=== PATIENT | male | born 1950 ===

== ENCOUNTER 2021-08-15 06:17 | Day surgery (SDC) | payer MEDICARE ==
[~2021-08-15] VITALS: Ht 170.2 cm; Wt 93.8 kg
[2021-08-15] VITALS (12 sets, daily range): BP systolic 105–1221; BP diastolic 46–71; PULSE 51–75; TEMP 97.4–98.4
[2021-08-15] MEDS ORDERED: GLUCOPHAGE500 MG/TAB PO (07:04)
[2021-08-15] MEDS ORDERED: LIPITOR 10MG10 MG PO (07:04)
[2021-08-15] MEDS ORDERED: PROSCAR 5MG5 MG PO (07:05)
[2021-08-15] MEDS ORDERED: BYDUREON B2 MG/0.85 (07:05)
--- NOTE | 2021-08-15 11:00 | NUR ---
Pt up recently from [place]. He is alert and oriented although drowsy and states that he is tired wanting some rest. Oriented pt to his room and educated on room service. Pt is able to wiggle the toes on his right leg but is not able to on his left. Dressing to left knee is CDI with ice pack in place. Gave pt some ice water.
[2021-08-15] MEDS ORDERED: CELEBREX 200MG200 MG PO (15:03)
[2021-08-15] MEDS ORDERED: ROXICODONE 55 MG/TAB PO (15:03)
[2021-08-15] MEDS ORDERED: ASPI325T6 PO (15:03)
[2021-08-15] MEDS ORDERED: TYLENOL 500MG500 MG PO (15:04)
--- NOTE | 2021-08-15 16:24 | NUR ---
Pt continues to do well with minimal pain. Pt has been up and ambulated in the hallway using a walker. He has slept off and on, tolerating regular diet. Pt hopeful to get to go home tomorrow
--- NOTE | 2021-08-16 03:31 | NUR ---
Patient has had an uneventful shift, has been resting quietly in his bed for a majority of the night. Only one PRN pain medication was given, which lowered the patients pain. This nurse ambulated with the pt with the assistance of his walk; pt did not show signs of a weak or unsteady gait. Pt did not complain of pain until after we finished our walk around the unit. Full body assessment and medication administration completed without difficulty; vital signs have been WNL. Pt is to have a brace on his affected LE, none are currently on the floor, will relay this order to daysmtft nurse. Pt has no other other complaints at this time, call light within reach.
[2021-08-16 03:54] VITALS: BP 141/69; PULSE 69; TEMP 98.8
[2021-08-16 06:02] LABS: HEMOGLOBIN 12.7 g/dl (13.5-18.0)
[2021-08-16 06:12] LABS: HEMATOCRIT 36.3 % (42.0-52.0)
[2021-08-16 07:40] VITALS: BP 143/82; PULSE 93; TEMP 98.2
--- NOTE | 2021-08-16 08:17 | NUR ---
Patient resting in bed. He has finished breakfast. Pain medication in anticipation of therapy this am. Orthopedic doctors have rounded. plan of care reviewed. Left knee dressing intact. iced & elevated. Will continue to monitor.
--- NOTE | 2021-08-16 09:15 | NUR ---
Initial visit; Patient doing well, talked about his mom and family and states he is very blessed with family. Film Splicer offered God's blessings and will keep him in her prayers.
--- NOTE | 2021-08-16 09:40 | NUR ---
YAS met with the patient and his , Francine ([id number]#[phone]), to discuss discharge plan. The patient lives in [place] with his . He reports independence with ADLs and has a walker and two canes. The patient's PCP is Dr. Mauricio Schaefer and he receives his medications from the [facility] in [place]. The patient does not have a DPOA-HC in EMR, but he states that he does have one completed and that it designates his . The patient plans on returning home with his and receiving outpatient therapy at [facility] in [place] upon discharge. No additional needs at this time. *Discharge plan: home with and outpatient therapy*
[2021-08-16 11:36] VITALS: BP 162/87; PULSE 95; TEMP 98.9
--- NOTE | 2021-08-16 11:38 | NUR ---
Patient working with therapy. Reports being sleepy from medication. Pain managed at rest, but elevated with any movement. Technol brace given to patient & therapy assisted patient on how to use. Int dc for shower. Geronimo wrap removed from left knee. Aquacell dressing intact. Lunch ordered, will monitor.
--- NOTE | 2021-08-16 16:19 | NUR ---
Patient did well with afternoon therapy. He requested to rest & ice and elevate this afternoon & wanted to discharge after pain medication. We reviewed all discharge information. Medication list reviewed with last dose taken. Signs & Symptoms reviewed. Left knee aquacell dressing intact. incisions cares reviewed. Patient wheeled out with all belogings. taking him home. All questions answered.
== END 2021-08-16 16:27 | disposition home or self-care (01) ==
LOC: SDCO 06:17 → SURG 07:30 → SDCO 07:30 → EDSTATUS 07:30 → SURG 09:50 → SDCO 08-16 16:27
PROVIDERS: Physician Assistant
DX: M17.12 Unilateral primary osteoarthritis, left knee (principal); G47.33 Obstructive sleep apnea (adult) (pediatric); Z99.89 Dependence on other enabling machines and devices
CPT/HCPCS: OP; A9284; C1713; C1776; J0690; J2250; J2704; J3010; J7120; L1830